=== PATIENT | female | born 1965 | race Caucasian/White ===

== ENCOUNTER 2021-12-06 17:01 | Emergency (ER) | payer BC ==
[2021-12-06] MEDS ORDERED: ZOFRAN ODT 4 MG4 MG PO (19:19)
[2021-12-06] MEDS ORDERED: LODINE CAP 300300 MG PO (19:19)
[2021-12-06] MEDS ORDERED: HYDROCODON-ACE1 EAC4 PO (19:25)
== END 2021-12-06 19:36 | disposition home or self-care (01) ==
LOC: ER1 17:01
DX: S52.572A Other intraarticular fracture of lower end of left radius, initial encounter for closed fracture (principal); S52.612A Displaced fracture of left ulna styloid process, initial encounter for closed fracture; Z23 Encounter for immunization; W01.0XXA Fall on same level from slipping, tripping and stumbling without subsequent striking against object, initial encounter; Y92.009 Unspecified place in unspecified non-institutional (private) residence as the place of occurrence of the external cause
CPT/HCPCS: 25605; 73090; 73100; 73110; 90471; 99152; 99283; J2250; J2704

== ENCOUNTER → 2022-01-06 | Day surgery (SDC) | payer BC ==
[~2022-01-06] VITALS: Ht 162.6 cm; Wt 62.6 kg
[~2022-01-06] MED LIST: HYDROCODON-ACE1 EAC2 PO; HYDROCODON-ACE1 EAC4 PO; LODINE CAP 300300 MG PO; VENLAFAXINE HC150 MG PO; ZOFRAN ODT 4 MG4 MG PO
[2022-01-06 11:08] LABS: HEMOGLOBIN 13.4 gm/dl (12.3-15.3); RED BLOOD COUNT 4.1 M/UL (4.00-5.10); WHITE BLOOD COUNT 2.7 K/UL (4.5-11.0)
[2022-01-06 11:34] LABS: BUN/CREATININE RATIO 10 (0-10)
== END | disposition home or self-care (01) ==
LOC: OR 07:30
PROVIDERS: Orthopaedic Surgery
DX: S52.552A Other extraarticular fracture of lower end of left radius, initial encounter for closed fracture (principal); S52.612A Displaced fracture of left ulna styloid process, initial encounter for closed fracture; J45.909 Unspecified asthma, uncomplicated; X58.XXXA Exposure to other specified factors, initial encounter; Z98.51 Tubal ligation status; Z90.710 Acquired absence of both cervix and uterus; Z88.1 Allergy status to other antibiotic agents; Z88.5 Allergy status to narcotic agent; Z88.0 Allergy status to penicillin; Z72.89 Other problems related to lifestyle; Z20.822 Contact with and (suspected) exposure to COVID-19
CPT/HCPCS: 73110; 76000; 80048; 85025; C1713; C1762; J0690; J0780; J1100; J2001; J2250; J2405; J2704; J2795; J7120